=== PATIENT | male | born 1970 ===

== ENCOUNTER 2019-04-26 14:58 | Emergency (ER) | payer SELFPAY ==
[2019-04-26 15:33] LABS: Basophils % 0.4 % (0-1.3); Hematocrit 40.5 % (39.6-49.0); Lymphocytes % 7.2 % (15.3-44.8); MPV 8.8 fL (7.6-11.3); RBC Red Blood Cell Count 4.87 M/uL (4.33-5.43)
[2019-04-26] MEDS ORDERED: CEFAZOLIN/SWI 1gm 1 GM/10 ML SYR ONE (15:41)
[2019-04-26] MEDS ORDERED: TETANUS & DIPHTHERIA TOX,ADULT 0.5 ML VIAL ONE (15:41)
[2019-04-26] MEDS ORDERED: NA CHLORIDE 0.9% 1,000 ML ONE (15:41)
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
[2019-04-26] MEDS ORDERED: DIAZEPAM 5 MG TABLET ONE (17:14)
[2019-04-26 17:57] VITALS: TEMP 98.2
[2019-04-26 17:58] VITALS: BP 141/95; O2SAT 98
== END 2019-04-26 17:15 ==
LOC: ER 14:58 → EDBD 14:58 → ER 17:06
PROC: 0JQ00ZZ Repair Scalp Subcutaneous Tissue and Fascia, Open Approach (ICD-10-PCS; principal; 2019-04-26)
DX: S01.81XA Laceration without foreign body of other part of head, initial encounter (principal); W17.89XA Other fall from one level to another, initial encounter; Z23 Encounter for immunization
CPT/HCPCS: 36415; 70450; 70486; 71045; 72125; 76377; 80048; 85025; 90471; 90714; 96374; 99285; J0690; J7030